=== PATIENT | male | born 1945 | race Caucasian/White ===

== ENCOUNTER → 2018-10-15 10:11 | Outpatient (CLI) | payer MEDICARE, SELFPAY ==
--- NOTE | 2018-10-15 10:12 | RAD_ITS ---
STUDY: X-RAY - LEFT KNEE REASON FOR EXAM: Male, 72 years old. Pain TECHNIQUE: 4 view(s) of the knee. COMPARISON: None. FINDINGS: Normal visualized distal femur. Normal visualized proximal tibia and fibula. Normal proximal tibiofibular articulation. Normal medial femorotibial compartment. Normal lateral femorotibial compartment. Normal patellofemoral articulation. The soft tissue structures are unremarkable. RAD/Knee 4 or More Views IMPRESSION: Normal x-ray examination of the knee. No fracture. No osteoarthritis. No knee joint effusion. Electronically Signed: Diallo Batista MD at 5:36 EST Tel , Service support ,
== END ==
PROVIDERS: Referring Provider Physician Assistant; Visit Provider Physician Assistant
DX: M25.562 Pain in left knee (principal)
CPT/HCPCS: 73564

== ENCOUNTER → 2019-05-25 09:02 | Outpatient (CLI) | payer MEDICARE, SELFPAY ==
--- NOTE | 2019-05-25 09:03 | RAD_ITS ---
STUDY: X-RAY - LEFT HAND REASON FOR EXAM: Male, 73 years old. Bilateral hand pain. TECHNIQUE: Three view(s) of the hand. COMPARISON: April 29, 2017 FINDINGS: Bones: Stable generalized osteopenia. Joints: Moderate to severe arthrosis of the radial carpal row. Severe arthrosis of the first and second carpometacarpal joints. Mild arthrosis of the MCP and IP joints. Findings are stable since the prior study. Soft tissues: The soft tissues are unremarkable. Foreign body: None RAD/Hand Min 3 Views IMPRESSION: Stable osteopenia with osteoarthritic changes. No acute finding. Electronically Signed: Jaron Brewster MD at 14:52 EDT , Service support ,
--- NOTE | 2019-05-25 09:03 | RAD_ITS ---
STUDY: X-RAY - RIGHT HAND REASON FOR EXAM: Male, 73 years old. Hand pain. TECHNIQUE: Three view(s) of the hand. COMPARISON: April 29, 2017 FINDINGS: Bones: Stable osteopenia. Joints: Stable moderate arthrosis of the radial carpal row, severe arthrosis of the first and second CMC joints and mild arthrosis of the MCP and IP joints. Soft tissues: The soft tissues are unremarkable. Foreign body: None RAD/Hand Min 3 Views IMPRESSION: Stable osteopenia with osteoarthrosis. No acute finding. Electronically Signed: Jaron Brewster MD at 16:16 EDT , Service support ,
== END ==
PROVIDERS: Referring Provider Orthopaedic Surgery; Visit Provider Orthopaedic Surgery
DX: M79.641 Pain in right hand (principal); M79.642 Pain in left hand
CPT/HCPCS: 73130

== ENCOUNTER 2019-06-09 11:03 | Day surgery (SDC) | payer MEDICARE, SELFPAY ==
[2019-06-03 08:51] VITALS: BMI 28.9
[2019-06-09] VITALS (7 sets, daily range): BP systolic 136–177; BP diastolic 79–105; PULSE 60–80; RESP 14–16; TEMP 36.3–37; O2SAT 93–98; BMI 27.8
[2019-06-09] MEDS: Lactated Ringers 1,000 ML 100 ML IV (11:46)
--- NOTE | 2019-06-09 12:00 | HP.PCM_ITS ---
History and Physical I have re-examined the patient. There are no clinical changes since date of exam. Intake Vital Signs 06/03/19 Body Mass Index (BMI) 28.9 Intake Visit Reasons: carpal tunnel Allergies No Known Drug Allergies Adverse Reaction (Unknown, Verified 09/17/13 15:11) Other [facility] Social History (Updated 06/03/19 @ 13:20 by Chikis Dumont DO) Smoking Status: Former smoker HPI carpal tunnel: Details: Parts of this documentation were recorded by a scribe, this documentation accurately reflects the service provided and the decisions made by me, Chikis Dumont DO 06/03/19 [id number]. RE CARDOSO is a 73 year old M here today for an EMG/NC review, his results are presents from [facility]. He has no changes since last visit and continues to have weakness and numbness of the left hand. no fever, chills or other constitutional symptoms. see chart. ROS Const Reports system reviewed and no additional complaints, except as docu Eyes Reports system reviewed and no additional complaints, except as docu ENT Reports system reviewed and no additional complaints, except as docu Card Reports system reviewed and no additional complaints, except as docu Resp Reports system reviewed and no additional complaints, except as docu GI Reports system reviewed and no additional complaints, except as docu Musc Reports muscle weakness, Reports numbness, Reports tingling Skin/Breast Reports system reviewed and no additional complaints, except as docu Neuro Yes as per HPI, Yes burning sensations, Yes localized weakness, Yes numbness, Yes tingling Psych Reports system reviewed and no additional complaints, except as docu Endo Reports system reviewed and no additional complaints, except as docu Ortho Exam Right Wrist/Hand A1 alice trigger: Yes Right Wrist: Yes ROM-Extension 0-60, ROM-Flexion 0-80, ROM-Pronation 0-80 and ROM-Supination 0-90 Left Wrist/Hand A1 alice trigger: No Left Wrist: Yes ROM-Extension 0-60, Yes ROM-Flexion 0-80, Yes ROM-Pronation 0-80 and Yes ROM-Supination 0-90 Motor: EPL: 5, FDP-2: 4, 1st Dorsal Interosseous: 5, APB: 4 Sensation: Radial: I, Ulnar: I, Median: D no r/r/w no abd pain no audible bruits Assessment & Plan Problems 1. Trigger middle finger of right hand M65.331 2. Carpal tunnel syndrome of right wrist G56.01 Plan Personally reviewed patients EMG which showed severe carpal tunnel syndrome. See imaging report for further details. Educated the patient about his options and patient wanted to proceed with surgery. Spoke with him about the surgery procedure and recovery. Spoke with him about his trigger finger release, and he might not have full extension following release. Reviewed the pre-operative plans with the patient. Risks and benefits of the procedure were fully explained, including but not limited to infection, neurovascular injury, continued pain, arthritis, stiffness, need for further surgery, re-injury, DVT, PE, general risks of anesthesia, and loss of limb or life. The patient understands all the risks and does wish to proceed with written consent. Follow up for 2 week post op or sooner if pain, swelling, numbness or associated symptoms, or concerns develop. All questions answered. Patient in agreement of plan. Coding Level of Care Code Off vis,est,level 4 Diagnoses Trigger middle finger of right hand M65.331 ??Trigger finger location: middle finger Carpal tunnel syndrome of right wrist G56.01
--- NOTE | 2019-06-09 12:01 | DCINST_ITS ---
Discharge Diet: No Restrictions - leave dressing intact, call with concerns, follow up in 2 weeks Discharge Activity: May Not Drive May shower in (days): 1 Ice area for (Minutes): 20 - Every hour while awake. Weight Bearing Status: Weight bearing as tolerated Keep extremity elevated above heart level: Operative Extremity Call your doctor if your incision/area has: Continuous Slow Oozing, Sudden Increased Bleeding, Increased Pain/ Swelling, Increased Redness, Foul Smelling Discharge Call your doctor if you observe: Fever of 101 or Higher, Coldness, Increased Pain, Numbness or Tingling, Change in Color, Calf discomfort Allergies/Adverse Reactions: Allergies No Known Drug Allergies Adverse Reaction (Unknown, Verified 06/09/19 11:23) Other Medications to take at Discharge Alfuzosin HCl [Uroxatral] 10 mg PO QHS 09/17/13 Omeprazole [Prilosec] 40 mg PO QHS 09/17/13 aspirin 81 mg tablet,delayed release 81 mg PO DAILY 05/25/19 irbesartan 150 mg tablet 150 mg PO QHS 05/25/19 rosuvastatin 5 mg tablet 2.5 mg PO QHS 05/25/19 Alpha Lipoic Acid 300 mg PO BID 06/08/19 Hyaluronic Acid, Hydrolyzed [Hydrolyzed Hyaluronic Acid] 1 gm PO DAILY 06/08/19 Levothyroxine Sodium [Synthroid] 25 mcg PO QHS 06/08/19 Multivitamin with Minerals [Multiple Vitamin] 1 ea PO DAILY 06/08/19 Greenup-3 Fatty Acids [Greenup-3] 1,000 mg PO DAILY 06/08/19 Oxycodone HCl/Acetaminophen [Percocet 5-325 mg Tablet] 1 ea PO Q6H PRN PRN 7 Days #28 tab 06/09/19 The following prescriptions were given: Oxycodone HCl/Acetaminophen [Percocet 5-325 mg Tablet] 1 ea PO Q6H PRN PRN 7 Days #28 tab PRN Reason: Pain Transmission Status: Received by [facility] Primary Care Physician: LEX LEON [Other] Test Results: Test results from this visit will be discussed in further detail at your follow- up appointment, if applicable. Please Follow Up With: Chikis Dumont, DO - [phone]
--- NOTE | 2019-06-09 12:02 | PCM.OPRPT ---
Report of Operation Date of Procedure: 06/09/19 Pre-Operative Diagnosis: RIGHT CARPAL TUNNEL, LEFT MIDDLE FINGER TRIGGER FINGER Post-Operative Diagnosis: SAME Surgery/Procedure Performed:: RIGHT CARPAL TUNNEL RELEASE, LEFT MIDDLE FINGER A1 LINDA RELEASE sporting [employer] sales associate: Erasmo Caballero Type of Anesthesia:: General Anesthesiologist: Benito Fung Estimated Blood Loss (mL): TT- 10 MIN Fluids Replaced: 800CC LR Description of Procedure: Lluvia left carpal tunnel Preoperative note Patient is a { 73 YO } patient with nerve conduction study confirming carpal tunnel syndrome. Patient failed conservative treatment for her carpal tunnel elected proceed with left carpal tunnel release and right middle finger trigger. Risks benefits and alternatives surgery discussed with patient. Risks including but not limited to blood loss, blood clot, infection, neurovascular injury, failure procedure, loss of life and loss of limb. Patient is aware like proceed with left carpal tunnel release and right middle finger a1 linda release. Operative note Patient seen and examined preoperative holding area. Left hand was marked for carpal and right middle finger trigger. History and physical and consent reviewed. Patient was brought to the operating room placed supine on the operating table. Sign in, anesthesia, antibiotics were administered. Left upper extremity was prepped and draped after [place] block was initiated. All bony prominences well-padded SCDs placed on bilateral lower extremities. We marked out our incisions for our carpal tunnel release at the intersection of Connor's line in the fourth ray flexed. We extended about a centimeter and a half. Timeout was performed. We then checked ensure that the [place] block was working with pickups which it was. We then used a 15 blade to make a skin incision. We then dissected down tenotomy syllable of the transverse carpal ligament. We then used a new 15 blade cut through the transverse carpal ligament down to the level of the median nerve. We then further released the median nerve the combination of the 15 blade and tenotomies. The nerve was grayish in color and adherent to the transverse carpal ligament volarly. We released the transverse carpal ligament distally to the fat pad and then proximally under standard technique. We then palpated to ensure that we released all of the transverse carpal ligament which we did. We irrigated the incision with copious amounts of sterile saline. All bleeders were coagulated. The incision was closed with interrupted 4-0 nylon stitches. Tourniquet was deflated for total working time of 10 minutes. right middle finger a1 linda palpated. incision marked out and 15 blade used to make skin incision and dissected down with tenotomies to a1 linda which was released and flexor tendons brought out of incision and finger was flexed/extended to enusre no further clicking which there was none. incision closed with interrupted 4-0 nylon stitches. Patient tolerated procedure well there were no complications. Patient transferred to recovery room in stable condition. Postoperative note Hospital pharmacy has prescription Leave dressing clean dry and intact Follow-up in 2 weeks Call with concerns This note was generated with [employer] dictation software. It may contain incorrect words, spelling, and punctuation that were not noted in checking the note before signing.
[2019-06-09] MEDS: Cefazolin 2 GM in 0.9% Normal Saline 100 ML IV (12:51)
[2019-06-09] MEDS: Mupirocin Ointment 22gm Tube 1 APPLIC (13:32)
== END 2019-06-09 15:04 | disposition home or self-care (01) ==
LOC: SDC 11:03 → AC 11:09
PROVIDERS: Referring Provider Orthopaedic Surgery; Visit Provider Orthopaedic Surgery
PROC: (CPT 64721; principal; 2019-06-09 12:20)
DX: M65.331 Trigger finger, right middle finger (principal); G56.01 Carpal tunnel syndrome, right upper limb; E78.00 Pure hypercholesterolemia, unspecified; G47.30 Sleep apnea, unspecified; K21.9 Gastro-esophageal reflux disease without esophagitis; J45.909 Unspecified asthma, uncomplicated; Z79.82 Long term (current) use of aspirin; Z79.899 Other long term (current) drug therapy; Z87.891 Personal history of nicotine dependence
CPT/HCPCS: 01810; 26055; 64721; J7120; J2405